=== PATIENT | female | born 1990 | race Asian ===

== ENCOUNTER 2016-06-20 11:48 | Inpatient (IN) | payer OTHER ==
[2016-06-22] MEDS ORDERED: OXYTOCIN IN LR 500 ML IV ONE (11:51)
[2016-06-22] MEDS ORDERED: PENICILLIN G POTASSIUM 5 MMU in NS 0.9% (MINI-BAG PLUS) 100 ML IV ONE (11:51)
[2016-06-22] MEDS ORDERED: PENICILLIN G POTASSIUM 5 MMU VIAL ONE (12:23)
[2016-06-22] MEDS ORDERED: PUMP TUBING ONE (12:23)
[2016-06-22] MEDS ORDERED: NS 0.9% (MINI-BAG PLUS) 100 ML IV ONE (12:23)
[2016-06-22] MEDS ORDERED: LIDOCAINE 1% (PRES FREE) 30 ML VIAL ONE (12:24)
[2016-06-22] MEDS ORDERED: MINERAL OIL 25 ML BOT ONE (12:24)
[2016-06-22] MEDS ORDERED: OXYTOCIN 10 UNITS/ML VIAL ONE (12:24)
[2016-06-22] MEDS ORDERED: IV START KIT ONE (12:24)
[2016-06-22] MEDS ORDERED: LIDOCAINE Viscous 2% 15 ML UDCUP ONE (12:25)
[2016-06-22] MEDS: LACTATED RINGERS 1,000 ML IV SCH ×3 (12:55→23:15)
[2016-06-22] MEDS: OXYTOCIN IN LR 500 ML IV PRN ×6 (13:04→22:16)
[2016-06-22 13:47] LABS: HEMATOCRIT 31.7 % (37.0-47.0); HEMOGLOBIN 10.2 gm/l (12.0-16.0); MEAN CELL VOLUME 84.3 fl (81.0-99.0); MEAN CORPUSCULAR HEMOGLOBIN 27.1 pg (27.0-31.0); MEAN CORPUSCULAR HGB CONC 32.2 g/dl (33.0-37.0); RED CELL DISTRIBUTION WIDTH 13.8 % (11.5-14.5)
[2016-06-22 13:57] VITALS: BMI 36.4
[2016-06-22] MEDS ORDERED: PENICILLIN G 3 MIL UNIT PREMIX 50 ML IV ONE ×2 (16:38→20:43)
[2016-06-22] MEDS: PENICILLIN G 3 MIL UNIT PREMIX 3 MMU in Premix (D5W) 50 ml 1 EACH IV SCH ×2 (17:08→21:08)
--- NOTE | 2016-06-22 20:34 | PCMAN ---
OB Admission Note - History : 2 Term: 1 Livin EDC:: 06/20/16 Gestational Age (weeks): 40 Days (#/7): 2 Admit Cervical Dilation:: 2 Admit Cervical Effacement (%):: 2 Admit Station:: -3 Admit Presentaton:: [facility] Membrane Status: Intact Contractions: Yes Contraction Frequency:: IRREGULAR Heart Rate:: 130 Status:: category 1 EFW:: 8 Summary of Course:: Dates by LMP, confirmed by US. 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 She was smoking lightly in early but did quit. She developed some elevation of BP earlier this week that improved when she was taken off work , PIH panel was normal but her 24 hour protein was mildly elevated and that contributed to my decision to induce. - Labs Blood Type: A (+) positive Hct/Hgb:: 31.7/10.2 Rubella Status: Immune GBS Status: Positive Abnormal Labs: None Other Labs:: 1 hr [id number] - Physical Exam General: Afebrile, No Acute Distress Psych/Mental Status: Mood/Affect Appropriate Neurological: Grossly Intact, Alert, Oriented x 4, Normal Gait, Normal Speech, Normal Reflexes, Cranial Nerves 3-12 Intact HEENT: Atraumatic, PERRLA, EOMI, Mucous membr. moist/pink Lungs: Clear to Auscultation Bilaterally Cardiovascular: Regular Rate and Rhythm, No Murmur Abdomen: Normal Bowel Sounds, No Tenderness Genitourinary: Normal Female Genitalia Extremities: Full ROM, Edema (1+) DTR: Patellar (L): 2+ (Brisk, Normal), Patellar (R): 2+ (Brisk, Normal) Skin: No Rash - Problems (1) Post term Status: Acute Code: O48.0 Assessment/Plan: Expecting . (2) GBS (group B Streptococcus carrier), +RV culture, currently Status: Acute Code: O99.820 Assessment/Plan: Penicillin started per protocol.
[2016-06-23] MEDS ORDERED: PENICILLIN G 3 MIL UNIT PREMIX 50 ML IV ONE ×2 (00:38→04:44)
[2016-06-23] MEDS: PENICILLIN G 3 MIL UNIT PREMIX 3 MMU in Premix (D5W) 50 ml 1 EACH IV SCH ×5 (01:14→13:14)
[2016-06-23] MEDS: OXYTOCIN IN LR 500 ML IV PRN ×6 (02:00→05:49)
[2016-06-23] MEDS ORDERED: FENTANYL 100 MCG/2 ML VIAL IV PRN (04:12)
[2016-06-23] MEDS ORDERED: FENTANYL 100 MCG/2 ML VIAL ONE (04:19)
[2016-06-23] MEDS ORDERED: FENTANYL/ROPIVACAINE EPIDURAL 250 ML EP ONE (07:03)
[2016-06-23] MEDS ORDERED: EPIDURAL PUMP SET ONE (07:03)
[2016-06-23] MEDS: LACTATED RINGERS 1,000 ML IV SCH ×5 (07:18→12:29)
[2016-06-23] MEDS ORDERED: NALOXONE HCL 0.4 MG/ML VIAL IV PRN (07:50)
[2016-06-23] MEDS ORDERED: ONDANSETRON 4 MG/2ML 2 ML VIAL IV PRN (07:50)
[2016-06-23] MEDS ORDERED: DIPHENHYDRAMINE HCL 50 MG/1 ML VIAL IV PRN (07:50)
[2016-06-23] MEDS ORDERED: NALBUPHINE HCL 20 MG/ML AMP IV PRN (07:50)
[2016-06-23] MEDS ORDERED: LACTATED RINGERS 500 ML IV PRN (07:50)
[2016-06-23] MEDS ORDERED: SODIUM CHLORIDE 0.9% 500 ML IV PRN (07:50)
[2016-06-23] MEDS ORDERED: FENTANYL/ROPIVACAINE EPIDURAL 250 ML EP SCH (07:50)
[2016-06-23] MEDS ORDERED: EPHEDRINE SULFATE 50 MG/ML 1ML VIAL IV PRN (07:50)
[2016-06-23] MEDS ORDERED: METOCLOPRAMIDE HCL 5 MG/ML 2ML VIAL IV PRN (07:50)
[2016-06-23] MEDS ORDERED: ROPIVACAINE 0.5% 30 ML VIAL ONE (07:58)
[2016-06-23] MEDS ORDERED: EPIDURAL PROCEDURE TRAY ONE (07:58)
[2016-06-23] MEDS ORDERED: CALCIUM CARBONATE 500 MG TAB.CHEW PO PRN (15:28)
[2016-06-23] MEDS ORDERED: ACETAMINOPHEN 325 MG TABLET PO PRN (15:28)
[2016-06-23] MEDS ORDERED: LANOLIN 50 APPLIC/7G TUBE TP PRN (15:28)
[2016-06-23] MEDS ORDERED: OXYCODONE HCL 5 MG TABLET PO PRN (15:28)
[2016-06-23] MEDS ORDERED: OXYCODONE/ACETAMINOPHEN 5/325 MG TABLET PO PRN (15:28)
[2016-06-23] MEDS ORDERED: BENZOCAINE/MENTHOL 60 APPLIC/BOT TP PRN (15:28)
[2016-06-23] MEDS: IBUPROFEN 800 MG TABLET PO PRN (18:22)
--- NOTE | 2016-06-23 19:43 | PCMDEL ---
Delivery Note - Labor 1st stage (hr/min):: 20 hr/ 51 min 2nd stage (hr/min):: 13 min 3rd stage (hr/min):: 6 min Total (hr/min):: 21 hr/ 10 min Pushed (hr/min):: 13 min - Delivery Delivery (Date): 06/23/16 Delivery (Time): 14:59 Infant Gender: Female Weight: 4.1 kg Length: 1 ft 9 in Position: OA Umbilical Cord: 3 Vessel, Nuchal Cord Delayed Cord Clamping:: > 3 min 1 Minute Total: 9 5 Minute Total: 9 Placenta:: intact EBL:: 150 ml Perineum:: 1st degree laceration Suture:: 3-0 Chromic Anesthesia/Meds:: Epidural with local for repair Length ROM:: 20 hr/51 min Comments:: Prolonged stage 1 due to malposition of baby, finally resolved with vigorous Riboso after her epidural when she was at 5 cm dilation. No other complications. Received adequate PCN prophylaxis for GBS.
[2016-06-24] MEDS: IBUPROFEN 800 MG TABLET PO PRN ×2 (00:25→18:05)
[2016-06-24 06:43] LABS: HEMATOCRIT 30.8 % (37.0-47.0); HEMOGLOBIN 9.9 gm/l (12.0-16.0)
--- NOTE | 2016-06-24 08:04 | PDOC43 ---
- Subjective Pt doing well, no questions or concerns. Subjective: Reports Pain Tolerable, Reports Tolerating PO Regular - Objective Vital Signs Temperature 98 F 06/24/16 07:33 Pulse Rate 80 06/24/16 07:33 Respiratory Rate 18 06/24/16 07:33 Blood Pressure 112/74 06/24/16 07:33 O2 Saturation by Pulse Oximetry Oxygen Delivery Method Room Air Oxygen Flow Rate 0 Laboratory 06/24/16 06:10 Active Medication Orders Category Date Time Status Acetaminophen [Tylenol] Med 06/23/16 15:28 Active 325 - 650 mg PO Q4H PRN Benzocaine/Menthol [Dermoplast] Med 06/23/16 15:28 Active 1 applic TP PRN PRN Calcium Carbonate [Tums] Med 06/23/16 15:28 Active 500 - 1,000 mg PO BID PRN Docusate Sodium [Colace] Med 06/24/16 09:00 Active 100 mg PO DAILY Ibuprofen [Motrin] Med 06/23/16 15:28 Active 800 mg PO Q6H PRN Lanolin [[id number]] Med 06/23/16 15:28 Active 1 applic TP PRN PRN Oxycodone HCl [Roxicodone] Med 06/23/16 15:28 Active 5 - 10 mg PO Q3H PRN Oxycodone HCl/Acetaminophen [Percocet 5/325] Med 06/23/16 15:28 Active 1 - 2 tab PO Q4H PRN Vit/Fe Fumarate/FA [ Plus] Med 06/24/16 09:00 Active 1 tab PO DAILY Sodium Chloride 0.9% Flush [Normal Saline 10ml Flush] Med 06/23/16 15:28 Active 10 ml IV PRN PRN Intake and Output 06/22/16 06/23/16 06/24/16 23:59 23:59 23:59 Intake Total 1700 Output Total 600 Balance 1100 HEENT: Atraumatic, EOMI, Mucous membr. moist/pink Lungs: Clear to Auscultation Bilaterally, Normal Air Movement Cardiovascular: Regular Rate and Rhythm, Normal S1, Normal S2, No Murmur Abdomen: Soft, Non-Distended, Normal Bowel Sounds, No Tenderness Rectal Exam: Deferred Extremities: Full ROM, No Edema Skin: Normal Color, Warm, Dry, Intact, No Rash Psych/Mental Status: Normal Affect, Normal Mood - Assessment/ Plan: (1) normal course Status: Acute Assessment/ Plan: 1. Routine care. 2. Contraception: will discuss tomorrow 3. Feeding: 4. Disposition: Home 5. d/c 2/3 likely
[2016-06-24] MEDS ORDERED: PRENATAL VIT/FE FUMARATE/FA 1 TABLET PO SCH (09:00)
[2016-06-24] MEDS ORDERED: DOCUSATE SODIUM 100 MG CAPSULE PO SCH (09:00)
[2016-06-24 12:51] VITALS: BP 112/77
[2016-06-24] MEDS: LACTATED RINGERS 1,000 ML IV SCH (16:44)
--- NOTE | 2016-06-24 18:50 | PDOC39B ---
Hospital Course: ADMIT DATE: 06/22/16 DISCHARGE DATE: 06/24/16 ADMISSION DIAGNOSES: labor PROCEDURES: none HISTORY OF PRESENT ILLNESS: 26 year old G2 T1 P A L1 at 40 weeks 3 days presenting with active labor HOSPITAL COURSE: The patient delivered successfully without complication By day of discharge the patient is ambulating, eating, voiding, and passing flatus without difficulty. Pain is controlled and lochia is appropriate. She is - Physical Exam Vital Signs: Temp Pulse Resp BP Pulse Ox 98 F 77 18 112/77 06/24/16 12:49 06/24/16 12:49 06/24/16 12:49 06/24/16 12:49 General: Afebrile, No Acute Distress Neurological: Alert, Oriented x 4 Lungs: Clear to Auscultation Bilaterally Cardiovascular: Regular Rate and Rhythm Fundus: Firm, Midline Extremities: Full ROM, No Edema Skin: Normal Color, Warm, Dry, Intact, No Rash Wound: Dressing Clean/Dry/Intact, Well Approximated - Discharge Diagnosis (1) normal course Status: Acute Assessment/Plan: 1. Routine care. 2. Contraception: will discuss with Dr. Cleaning 3. Feeding: 4. Disposition: Home 5. d/c today - Discharge Plan Instruction Forms: Vaginal Discharge Instructions Prescriptions: Ibuprofen [IBUPROFEN 800 MG TABLET (SHF)] 800 mg PO Q6H PRN #30 tablet PRN Reason: Pain (Mild) Vitamin D3 [VITAMIN D3 1000 UNITS SOFTGEL (SHF)] 5,000 units PO DAILY #100 softgel Follow-Up: Casandra Cleaning MD [Primary Care Provider] - In 6 weeks
== END 2016-06-24 20:17 | disposition home or self-care (01) | DRG 775 ==
LOC: EDSTATUS 11:48 → FBC 06-22 12:11
PROVIDERS: ADMIT Family Medicine; ATTEND Family Medicine
PROC: 0HQ9XZZ Repair Perineum Skin, External Approach (ICD-10-PCS; principal; 2016-06-23)
PROC: 10E0XZZ Delivery of Products of Conception, External Approach (ICD-10-PCS; 2016-06-23)
DX: O70.0 First degree perineal laceration during delivery (principal); O48.0 Post-term pregnancy; O99.334 Smoking (tobacco) complicating childbirth; F17.210 Nicotine dependence, cigarettes, uncomplicated; O99.824 Streptococcus B carrier state complicating childbirth; O69.81X0 Labor and delivery complicated by cord around neck, without compression, not applicable or unspecified; O32.9XX0 Maternal care for malpresentation of fetus, unspecified, not applicable or unspecified; Z3A.40 40 weeks gestation of pregnancy; Z37.0 Single live birth